=== PATIENT | male | born 1990 | race Caucasian/White ===

== ENCOUNTER 2021-10-19 18:18 | Emergency (ER) | payer SELFPAY ==
[~2021-10-19] VITALS: Ht 182.9 cm; Wt 151.5 kg
[2021-10-19 18:25] VITALS: BP 150/91
--- NOTE | 2021-10-19 19:15 | NUR ---
SEEN AND EXAMINED BY PA WITH ORDERS AND CARRIED OUT
[2021-10-19 19:39] LABS: BILIRUBIN,URINE NEGATIVE (NEGATIVE); BLOOD, URINE TRACE-I (NEGATIVE); COLOR,URINE YELLOW (YELLOW); LEUKOCYTE ESTERASE ,URINE 2+ (NEGATIVE); NITRITE, URINE NEGATIVE (NEGATIVE); UGLUCOSE NEGATIVE (NEGATIVE)
[2021-10-19 19:42] LABS: APPEARANCE,URINE HAZY (CLEAR)
[2021-10-19 19:45] LABS: RBC,URINE 0-5 /HPF (0-5)
[2021-10-19 19:46] LABS: WBC,URINE TOO MANY TO COUNT /HPF (0-5)
[2021-10-19] MEDS ORDERED: cefTRIAXone 1,000 MG in LIDOCAINE MPF 1% 2.1 ML IM ONE (19:50)
[2021-10-19] MEDS ORDERED: AZITHROMYCIN 250 MG TAB PO ONE (19:50)
[2021-10-19] MEDS ORDERED: NITR100C7 PO (19:55)
--- NOTE | 2021-10-19 21:00 | NUR ---
ALL RESULTS BACK AND NOTED BY PA AND FOR D/C
[2021-10-19] MEDS ORDERED: cefTRIAXone 1,000 MG VIAL ONE (21:40)
[2021-10-19] MEDS ORDERED: AZITHROMYCIN 250 MG TAB ONE (21:44)
[2021-10-19] MEDS ORDERED: LIDOCAINE MPF 1% 5 ML ONE (21:45)
[2021-10-19 22:00] VITALS: BP 128/80
--- NOTE | 2021-10-19 22:00 | NUR ---
Patient discharged with v/s stable. Written and verbal after care instructions given and explained. Patient alert, oriented and verbalized understanding of instructions. Ambulatory with steady gait. All questions addressed prior to discharge. ID band removed. Patient advised to follow up with PMD. Rx of NITROFURANTOIN given. Patient educated on indication of medication including possible reaction and side effects. Opportunity to ask questions provided and answered.
== END 2021-10-19 22:00 | disposition home or self-care (01) ==
LOC: MED 18:18
DX: N39.0 Urinary tract infection, site not specified (principal); Z79.899 Other long term (current) drug therapy
CPT/HCPCS: 36415; 81001; 87086; 96372; 99283; J0696; J2001; 96361; 96374